=== PATIENT | male | born 1970 | race Hispanic/Latino ===

== ENCOUNTER → 2020-10-18 | Day surgery (SDC) | payer SELFPAY ==
[~2020-10-18] MED LIST: Boostrix 0.5 ML (Tdap) VIAL ONE; Fentanyl 100 MCG/2 ML VIAL ONE; HYDROcodone/Acetaminophen 5/325 mg Tablet ONE; Insulin Regular 300 UNITS/3 ML VIAL ONE; Lidocaine 0.5%/Epinephrine 1:200,000 50 ml Vial ONE; Lidocaine 1% PF 5 ML VIAL ONE; Neomycin-Polymyxin 1 ML AMP ONE; Ondansetron PF 4 MG/2 ML Vial ONE; PROPOFOL 200 MG/20 ML VIAL ONE; Succinylcholine 200 MG/10 ml SYRINGE FS ONE; diphenhydrAMINE 50 MG/ML VIAL ONE
--- NOTE | 2020-10-18 15:46 | RAD ---
XR Femur Rt 2 View STANDARD History: Laceration Comparison: None. Findings: No acute fracture. Soft tissue laceration and debris along the anteromedial distal femur. Impression: Deep soft tissue laceration anteromedial distal femur without fracture.
[2020-10-18 16:07] LABS: #Lymphocytes 1.5 thou/uL (1.20-3.40); #Monocytes 0.4 thou/uL (0.11-0.59); #Neutrophils 5.4 thou/uL (1.40-6.50); %Basophils 0.1 % (0.0-1.0); %Eosinophils 0.6 % (0.0-10.0); %Lymphocytes 20.1 % (21.0-51.0); %Neutrophils 74.2 % (42.0-75.0); Hemoglobin 16.2 g/dL (14.0-18.0); Mean Corpuscular HGB CONC 35.2 g/dL (32.0-36.0); Mean Corpuscular Hemoglobin 32.9 pg (27.0-31.0); Mean Corpuscular Volume 93.5 fL (78.0-98.0); Mean Platelet Volume 10.6 fL (7.4-10.4); Platelet Count 178 thou/uL (130-400); RBC Distribution Width 11.8 % (11.5-14.5); Red Blood Cell (RBC) Count 4.68 mill/uL (4.70-6.10); White Blood Cell (WBC) Count 7.2 thou/uL (4.8-10.8)
--- NOTE | 2020-10-18 16:09 | RAD ---
PORTABLE CHEST ONE VIEW: 10/18/20 at 3:53 p.m. HISTORY: 12 cm laceration to the right thigh with saw. Bleeding controlled. FINDINGS: There are no previous exams for comparison. The heart size is normal. The lungs are expanded without lobar consolidation, pneumothoraces, or pleural effusions. IMPRESSION: No acute process. POS: AH
[2020-10-18 16:23] LABS: ALT (SGPT) 27 U/L (8-55); AST (SGOT) 19 U/L (5-34); Albumin 4.3 g/dL (3.5-5.0); Alkaline Phosphatase 132 U/L (40-110); Anion Gap 14 mmol/L (10-20); BUN (Urea Nitrogen) 11 mg/dL (8.9-20.6); Bilirubin, Total 0.4 mg/dL (0.2-1.2); Calc. Creatinine Clearance 0 mL/min (70-130); Calcium 9.3 mg/dL (7.8-10.44); Carbon Dioxide 24 mmol/L (22-29); Chloride 97 mmol/L (98-107); Glucose 491 mg/dL (70-105); Potassium 4.2 mmol/L (3.5-5.1); Protein, Total 7.3 g/dL (6.0-8.3); Sodium 131 mmol/L (136-145)
[2020-10-18 16:39] LABS: INR-International Normal Ratio 0.9; PTT 23.5 sec (22.9-36.1); Prothrombin Time 12.6 sec (12.0-14.7)
[2020-10-18 17:09] LABS: SARS-CoV-2 NAA Rapid Test Not Detected (NotDetected)
--- NOTE | 2020-10-18 22:21 | OP ---
DATE OF PROCEDURE: 10/18/2020 OPERATIONS PERFORMED: Irrigation and debridement with wound closure of right thigh laceration. PREOPERATIVE DIAGNOSIS: Complex right thigh laceration. POSTOPERATIVE DIAGNOSIS: Complex right thigh laceration. COMPLICATIONS: None. ESTIMATED BLOOD LOSS: Minimal. IMPLANTS: None. INDICATIONS: Mr. Long is a 50-year-old male who has lacerated his thigh with a circular saw. He has a right thigh laceration. He has a deep laceration into the quadriceps muscle. He has been indicated for irrigation and debridement with wound closure to hopefully prevent infection and allow healing. Risks have been reviewed in detail. DESCRIPTION OF PROCEDURE: Mr. Long was identified in the preoperative holding area. His correct extremity was marked. He was carried to the operating room. He was positioned supine. General anesthesia was induced. A multidisciplinary time-out was performed. The right lower extremity was prepped and draped in sterile fashion. We began the procedure with trimming the skin edges sharply with a knife. We then debrided down through the subcutaneous tissue and fascia into the muscle. We used a curette and rongeur. We scraped the edges of the wound. We performed a thorough sharp debridement with a scalpel as well. We then irrigated with copious lavage. We used a bulb irrigation throughout the wound of 2 L. We obtained hemostasis. At this point, we closed with a 2-0 nylon suture in interrupted fashion. A sterile dressing was applied. The patient was taken to the recovery room in good condition at this point without complication. Job ID: [id number]
--- NOTE | 2020-10-20 06:05 | PQF ---
[facility] POST DISCHARGE CLINICAL DOCUMENTATION IMPROVEMENT CLARIFICATION FORM Todays Date: 10/20/20 Patients Name UBALDO PEREZ Admit Date 10/18/20 Disch Date 10/18/20 Retail Sales Representative Name Carlos Ruffin Email: [email or web address] Cell: [phone] To be completed by Retail Sales Representative: Present Clinical Indicators - Signs / Symptoms Results and Location in Medical Record [ ] Documentation of: [ ] [ ] Documentation of: [ ] [ ] Documentation of: [ ] [ ] Documentation of: [ ] [ ] Risks [ ] [ ] [ ] Treatment [ ] Complex right thigh and quadriceps laceration Query for size of laceration repair (cm) [ ] [ ] To be completed by Physician: DR. GRECIA SAPP The documentation in this patients record requires clarification to ensure coding compliance and accuracy. Check the appropriate box and include in your discharge summary. [ x] 10 cm [ ] [ ] [ ] Please check this box if this does not apply to this patient [ ] Unable to determine [ ] Other diagnosis: Review the following information and exercise your independent professional judgment in responding to the clarification. Based upon the clinical findings, risk factors, and treatment, please clarify if you are treating one of the above probable or suspected diagnoses. Physician Signature: Date Time MTDD
--- NOTE | 2020-10-22 12:15 | EKG ---
Test Reason : Blood Pressure : / mmHG Vent. Rate : 091 BPM Atrial Rate : 091 BPM P-R Int : 160 ms QRS Dur : 074 ms QT Int : 318 ms P-R-T Axes : 021 080 032 degrees QTc Int : 391 ms Normal sinus rhythm Nonspecific T wave abnormality Abnormal ECG Confirmed by OLESYA ASHLEY ([id number]), editor publications YAEL MCMULLEN ([id number]) on 10/22/2020 12:15:10 PM Referred By: Confirmed By:OLESYA ASHLEY
== END ==
LOC: ERS 14:54 → SDC/OP 21:19
PROVIDERS: ATTEND Orthopaedic Surgery
PROC: 0KQQ0ZZ Repair Right Upper Leg Muscle, Open Approach (ICD-10-PCS; principal; 2020-10-18)
DX: S76.121A Laceration of right quadriceps muscle, fascia and tendon, initial encounter (principal); S71.111A Laceration without foreign body, right thigh, initial encounter; Z20.828 Contact with and (suspected) exposure to other viral communicable diseases; W27.0XXA Contact with workbench tool, initial encounter
CPT/HCPCS: 36416; 71045; 80053; 85025; 85610; 85730; 86850; 86900; 86901; 90471; 90715; 93005; 94760; 96374; J0690; J1200; J1815; J2001; J2405; J2704; J3010; U0002